=== PATIENT | female | born 2000 | race Caucasian/White ===

== ENCOUNTER 2021-07-05 08:45 | Emergency (ER) | payer OTHER, SELFPAY ==
[2021-07-05 08:47] VITALS: BP 104/86; PULSE 95; RESP 16; TEMP 36.6; O2SAT 99; BMI 27.8
[2021-07-05 09:13] LABS: Microscopic, Urine URINE MICROSCOPIC (MICROSCOPIC)
--- NOTE | 2021-07-05 09:14 | [facility].EDGENADL ---
ED Disposition Clinical Impression: Vaginal bleeding Disposition: Home, Self-Care Condition on Discharge: Good Instructions: DI for Vaginal Bleeding Additional Instructions: Follow-up with gynecology, Dr. Bermudez, call for appointment. Referrals: Provider,Gregoria, [Primary Care Provider] - Rachel Bermudez MD [Staff Physician] - - Critical Care Critical Care Time: No Attestation: On , the high probability of a clinically significant, sudden or life threatening deterioration of the following system(s) required my full and direct attention, intervention and personal management. The time I documented below is in addition to time spent performing reported procedures but includes the following listed in this critical care notation. Medical Decision Making - Pavel Inquiry Pt receiving controlled substance: No Vital Signs: 07/05/21 08:47 Temperature 97.8 F Temperature Source Oral Pulse Rate [Right Radial] 95 H Respiratory Rate 16 Blood Pressure [Right Arm] 104/86 L Blood Pressure Mean [Right Arm] 92 Blood Pressure Source [Right Arm] Automatic Cuff Blood Pressure Position [Right Arm] Sitting 02 Sat by Pulse Oximetry 99 Oxygen Delivery Method Room Air - Lab Data Lab Results 07/05/21 09:05: Urine Color Yellow, Urine Appearance Clear, Urine pH 6.0, Ur Specific [place] 1.025, Urine Protein Negative, Urine Glucose (UA) Negative, Urine Ketones 3+, Urine Blood Trace-l, Urine Nitrate Negative, Urine Bilirubin Negative, Urine Urobilinogen 0.2, Ur Leukocyte Esterase Negative, Urine RBC 3-5, Urine WBC 3-5, Ur Squamous Epith Cells 3-5 07/05/21 09:05: WBC 6.0, RBC 4.30, Hgb 13.4, Hct 40.0, MCV 93.0, MCH 31.1, MCHC 33.4, RDW 14.3, Plt Count 269, MPV 9.0, Neut % (Auto) 63.8, Lymph % (Auto) 25.4, [place] % (Auto) 4.5, Eos % (Auto) 5.5, Baso % (Auto) 0.7, Neut # (Auto) 3.8, Lymph # (Auto) 1.5, [place] # (Auto) 0.3, Eos # (Auto) 0.3, Baso # (Auto) 0.0 07/05/21 09:05: Sodium 140, Potassium 3.4 L, Chloride 107, Carbon Dioxide 28, Anion Gap 8.4, BUN 6 L, Creatinine 0.50 L, Estimated Creat Clear 255, Estimated GFR 156, Est GFR ( Amer) 188, Glucose 106 H, Calcium 8.4, Total Bilirubin 0.4, AST 24, ALT 20, Alkaline Phosphatase 48, Total Protein 6.1 L, Albumin 3.8, Globulin 2.3, Albumin/Globulin Ratio 1.7, HCG, Quant < 2 07/05/21 09:05: TSH 1.20, Free T4 Index 5.1 L, Thyroxine (T4) 10.8, T3 Uptake 47 H 07/05/21 09:29: Blood Type A Positive Result diagrams: 07/05/21 09:05 07/05/21 09:05 General Adult HPI - General Chief complaint: Vaginal Bleeding Stated complaint: severe vaginal bleeding Time Seen by Provider: 07/05/21 09:05 Mode of Arrival: Ambulatory Limitations: No Limitations Description of Symptoms (Recalled from ER Triage Doc. by RN): pt reports vaginal bleeding x26 days. Pt reports she woke up this morning with large clots coming from vaginal area. Pt reports had a positive home test lastnight, pt reports she had a CT scan in [place] last week ordered by her HOME SUPPORT WORKER to check for ovarian cysts r/t abnormal periods. Pt reports last normal cycle was in march. - History of Present Illness HPI narrative: States that she has been on her period for 26 days. This morning when she took a shower she was passing clots. She has mild cramps typical of previous menses, no severe pain. She just moved to this area a few days ago. She was seeing her BARTACKER in [place] prior to moving and had a test that was negative 3 weeks ago. She had a CT scan of her abdomen 2 weeks ago to look for cysts that was normal. She says that she did a home test last night and it was positive, but she says she really does not think she is . She is 1 para 1, had a baby 7 months ago. She has asthma but is not on any medications for that. She takes iron because she says her iron has been low since she had her baby. She is not on any other medications and otherwise is healthy. She is a smoker. - Related Data
[2021-07-05 09:15] LABS: Appearance,Urine CLEAR (Clear); Bilirubin,Urine Negative (Negative); Blood, Urine TRACE-L (Negative); Color,Urine YELLOW (Yellow); Glucose,Urine (UA) Negative (Negative); Ketones,Urine 3+ (Negative); Leukocyte Esterase,Urine Negative (Negative); Nitrate,Urine Negative (Negative); Protein,Urine Negative (Negative); Specific Gravity, Urine 1.025 (1.005-1.030); Urobilinogen,Urine 0.2 EU/dl (0.2)
[2021-07-05 09:16] LABS: Basophils % 0.7 % (0.1-2.0); Eosinophils # 0.3 K/mm3 (0.0-0.4); Eosinophils % 5.5 % (0.1-12.0); Hemoglobin 13.4 g/dL (12.2-16.2); Lymphocytes # 1.5 K/mm3 (0.7-4.5); Lymphocytes % 25.4 % (10-50); Mean Corpuscular HGB Conc 33.4 g/dL (31.8-35.4); Mean Corpuscular Hemoglobin 31.1 pg (27.0-31.2); Monocytes # 0.3 K/mm3 (0.1-1.0); Monocytes % 4.5 % (1.7-9.3); Neutrophils # 3.8 K/mm3 (1.8-7.8); Neutrophils % 63.8 % (37.0-80.0); Platelet Count 269 K/mm3 (142-424); Red Cell Distribution Width 14.3 % (11.5-17.5)
[2021-07-05 09:27] LABS: Carbon Dioxide 28 mmol/L (22.0-30.0); Chloride 107 mmol/L (98-107); Potassium 3.4 mmoL/L (3.5-5.1); Sodium 140 mmol/L (136-145)
[2021-07-05 09:28] LABS: Alanine Aminotransferase 20 U/L (12-78); Albumin Level 3.8 g/dl (3.5-5.0); Albumin/Globulin Ratio 1.7 (1.1-1.8); Alkaline Phosphatase 48 U/L (38-126); Anion Gap 8.4 mEq/L (5-15); Aspartate Amino Transferase 24 U/L (14-36); Bilirubin,Total 0.4 mg/dl (0.2-1.3); Blood Urea Nitrogen 6 mg/dl (7-17); Calcium 8.4 mg/dl (8.4-10.2); Creatinine Clearance Estimated 255 mL/min (50-200); Estimated Glomerular Filt Rate 156 ml/min (>60); GFR (African American) 188 ML/MIN (>60); Globulin 2.3 g/dL (1.3-3.2); Glucose 106 mg/dl (74-100); Total Protein,Serum 6.1 g/dl (6.3-8.2)
[2021-07-05 09:45] LABS: HCG,Quantitative < 2 mIU/ml (0-5.42)
[2021-07-05 10:11] LABS: Free Thyroxine Index 5.1 ug/dL (5.93-13.13); T4 (Thyroxine) 10.8 ug/dl (5.53-11.0); Triiodothryronine (T3) Uptake 47 % (23.5-40.5)
[2021-07-05 11:39] VITALS: BP 124/87; PULSE 78; RESP 18; TEMP 36.8; O2SAT 100
== END 2021-07-05 11:40 | disposition home or self-care (01) ==
PROVIDERS: Emergency Provider Emergency Medicine
DX: N93.9 Abnormal uterine and vaginal bleeding, unspecified (principal); J45.909 Unspecified asthma, uncomplicated; F17.210 Nicotine dependence, cigarettes, uncomplicated
CPT/HCPCS: 36415; 80053; 81001; 84436; 84443; 84479; 84702; 85025; 86900; 86901; 99283